=== PATIENT | male | born 1995 | race Caucasian/White ===

== ENCOUNTER 2024-01-29 09:15 | Emergency (ER) | payer OTHER ==
[2024-01-29 09:31] VITALS: PULSE 100; TEMP 99.3; O2SAT 98
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
[2024-01-29] MEDS ORDERED: Zithromax 250 MG TABLET ONE (09:54)
[2024-01-29] MEDS ORDERED: XYLOCAINE 1%/Epi 1:100000 MDV 20 ML ONE (09:54)
[2024-01-29] MEDS ORDERED: Adacel Vial IM ONE (09:54)
[2024-01-29] MEDS: Zithromax 250 MG TABLET PO ONE (10:12)
[2024-01-29] MEDS: Adacel Vial IM ONE (10:12)
[2024-01-29] MEDS: XYLOCAINE 1%/Epi 1:100000 MDV 20 ML IJ ONE (10:13)
--- NOTE | 2024-01-29 10:43 | XRAY ---
CLINICAL HISTORY: head trauma COMPARISON: None. TECHNIQUE: CT scan of the brain without contrast administration. Images were acquired in axial cuts with coronal and sagittal reformation. One of the following dose reduction techniques was utilized for this exam.Automated exposure control, adjustment of the mA and/or kV according to patient size, and use of iterative reconstruction. FINDINGS: Normal CT appearance of the cerebral parenchyma. The daniel-white matter differentiation is preserved. No area of abnormally low or high attenuation value seen. Normal size, position and configuration of the ventricular system. No shift of the midline structures. No evidence of intra or extra axial recent hematoma. Normal appearance of the posterior fossa structures including the brainstem and cerebellum. Bone window settings showed no evidence of fractures or destructive lesions. IMPRESSION: 1. No evidence of intracranial hemorrhage or skull fractures. 2. Normal non-contrast CT scan of the brain. Electronically Signed by: Paul Khan MD. (01/29/2024 10:38:44 EDT)
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
[2024-01-29] MEDS: MOTRIN 600 MG PO ONE (11:35)
[2024-01-29] MEDS ORDERED: MOTRIN 600 MG ONE (11:35)
[2024-01-29 11:40] VITALS: BP 129/95
== END 2024-01-29 11:40 | disposition home or self-care (01) ==
LOC: ED 09:15
DX: S01.01XA Laceration without foreign body of scalp, initial encounter (principal); Y00.XXXA Assault by blunt object, initial encounter; S00.33XA Contusion of nose, initial encounter; Y04.2XXA Assault by strike against or bumped into by another person, initial encounter; Y92.148 Other place in prison as the place of occurrence of the external cause; Y99.0 Civilian activity done for income or pay; Z79.899 Other long term (current) drug therapy; Z23 Encounter for immunization
CPT/HCPCS: 12002; 70450; 70486; 72125; 90471; 90715; 99284; A9270-GY